=== PATIENT | male | born 1955 | race Caucasian/White ===

== ENCOUNTER 2018-07-25 12:33 | Emergency (ER) | payer OTHER ==
[~2018-07-25] VITALS: Ht 185.4 cm; Wt 74.8 kg
[~2018-07-25 12:33] MED LIST: ALBU90OI; Advil200 M1 PO; Aspirin EC81 MG; Aspirin EC81 MG PO; CALCA500CH PO; CEPH500 PO; CODACE30 PO; PARO10; QVAR7.3 G1 INH
[2018-07-25] MEDS ORDERED: Robaxin500 MG PO (13:59)
[2018-07-25] MEDS ORDERED: HYDR1TAB94 PO (13:59)
[2018-07-25] MEDS ORDERED: IBUP600 PO (13:59)
== END 2018-07-25 14:05 | disposition home or self-care (01) ==
LOC: ER 12:33
DX: S63.286A Dislocation of proximal interphalangeal joint of right little finger, initial encounter (principal); S39.012A Strain of muscle, fascia and tendon of lower back, initial encounter; S29.012A Strain of muscle and tendon of back wall of thorax, initial encounter; Z23 Encounter for immunization; Z79.82 Long term (current) use of aspirin; W11.XXXA Fall on and from ladder, initial encounter
CPT/HCPCS: 29130; 72070; 72100; 72220; 73130; 90471; 90714; 99283-25